=== PATIENT | female | born 1940 | race Caucasian/White ===

== ENCOUNTER 2021-09-07 22:14 | Inpatient (IN) | payer OTHER ==
[2021-09-08 00:24] LABS: VENOUS O2 SATURATION 88.3 % (70-80); VENOUS PCO2 35.4 mmHg (38-52); VENOUS PH 7.486 (7.310-7.410)
[2021-09-08 00:25] LABS: HEMATOCRIT 38.9 % (32.4-45.2); HEMOGLOBIN 13.5 GM/dL (10.7-15.3); MCH 34.1 pg (25.7-33.7); MCHC 34.6 g/dl (32.0-36.0); MEAN CELL VOLUME 98.6 fl (80-96); MEAN PLT VOLUME 7.1 fl (7.5-11.1); PLATELET COUNT 168 10^3/uL (134-434); RBC 3.95 M/mm3 (3.60-5.2); RDW 13.1 % (11.6-15.6); WHITE BLOOD COUNT 14.4 K/mm3 (4.0-10.0)
[2021-09-08 00:46] LABS: ALBUMIN 3.4 g/dl (3.4-5.0); BLOOD UREA NITROGEN 11.6 mg/dL (7-18); CALCIUM 8.9 mg/dL (8.5-10.1)
[2021-09-08 00:49] LABS: CREATININE 0.6 mg/dL (0.55-1.3)
[2021-09-08 00:51] LABS: BILIRUBIN,TOTAL 1.4 mg/dL (0.2-1)
[2021-09-08 00:54] LABS: N-TERMINAL BNP 1414.7 pg/ml (5-450)
[2021-09-08] MEDS ORDERED: POTASSIUM CHLORIDE TABS 20 MEQ TABLET.ER (FP) PO ONE ×4 (01:11→16:30)
[2021-09-08] MEDS ORDERED: ACETAMINOPHEN 1000 MG/100 ML BAG IVPB ONE (02:16)
[2021-09-08] MEDS ORDERED: POLYETHYLENE GLYCOL (HEALTHYLAX) 3350 17 GM PACKET PO PRN (02:23)
[2021-09-08 02:24] LABS: MAGNESIUM 1.6 mg/dL (1.8-2.4)
[2021-09-08] MEDS ORDERED: MAGNESIUM SULF 50% (8.12 MEQ/2 ML-1 GM VIAL) IVPB ONE (02:36)
[2021-09-08] MEDS ORDERED: MAGNESIUM SULFATE IN WATER 2 GM/50 ML IVPB IVPB ONE (03:40)
[2021-09-08] MEDS ORDERED: ACETAMINOPHEN INJECTION 100 ML IVPB ONE (06:04)
[2021-09-08 06:37] LABS: CALCIUM 8.8 mg/dL (8.5-10.1)
[2021-09-08 06:38] LABS: BLOOD UREA NITROGEN 8.8 mg/dL (7-18)
[2021-09-08 06:41] LABS: CREATININE 0.5 mg/dL (0.55-1.3)
[2021-09-08] MEDS ORDERED: ALBUTEROL SO4 HFA INHALER IH PRN (07:14)
[2021-09-08] MEDS ORDERED: LISINOPRIL 20 MG TABLET ONE (07:54)
[2021-09-08] MEDS ORDERED: HYDROCHLOROTHIAZIDE 25 MG TABLET (FP) ONE (07:54)
[2021-09-08] MEDS ORDERED: ENOXAPARIN NA (PORCINE) 40 MG/0.4 ML DISP.SYRIN SQ ONE (07:54)
[2021-09-08] MEDS ORDERED: DEXAMETHASONE SOD PHOSPHATE 10 MG/1 ML VIAL ONE (07:54)
[2021-09-08] MEDS ORDERED: ACETAMINOPHEN 325 MG TABLET (FP) PO PRN (08:00)
[2021-09-08] MEDS: DEXAMETHASONE SOD PHOSPHATE 10 MG/1 ML VIAL IVPUSH SCH ×2 (08:11→09:42)
[2021-09-08 09:33] LABS: MAGNESIUM 2.8 mg/dL (1.8-2.4)
[2021-09-08 09:37] LABS: PHOSPHOROUS 2.9 mg/dL (2.5-4.9)
[2021-09-08] MEDS: HYDROCHLOROTHIAZIDE 12.5 MG CAPSULE (FP) PO SCH (09:43)
[2021-09-08] MEDS: LISINOPRIL 20 MG TABLET PO SCH (09:44)
[2021-09-08] MEDS: ENOXAPARIN NA (PORCINE) 40 MG/0.4 ML DISP.SYRIN SQ SCH (09:44)
[2021-09-08 12:42] VITALS: BMI 25.7
[2021-09-08 14:28] LABS: EPI CELLS 3 /uL (0-25.1); HYALINE CASTS 1 /uL (0-3.1); PH,URINE 6.5 (5.0-8.0); URINE APPEARANCE CLEAR; URINE BACTERIA 20 /uL (0-1359); URINE BILIRUBIN NEGATIVE (NEGATIVE); URINE COLOR YELLOW; URINE GLUCOSE (UA) NEGATIVE (NEGATIVE); URINE KETONE 1+ (NEGATIVE); URINE LEUK ESTERASE NEGATIVE (NEGATIVE); URINE NITRITE NEGATIVE (NEGATIVE); URINE PROTEIN 1+ (NEGATIVE); URINE RBC 18 /uL (0-23.9); URINE WBC 3 /uL (0-25.8)
[2021-09-08] MEDS: ATORVASTATIN CA 10 MG TABLET (FP) PO SCH (22:17)
[2021-09-09 08:35] LABS: HEMATOCRIT 38.4 % (32.4-45.2); HEMOGLOBIN 13.1 GM/dL (10.7-15.3); LYMPH % 7.3 % (8-40); MCH 33.7 pg (25.7-33.7); MCHC 34.1 g/dl (32.0-36.0); MEAN CELL VOLUME 98.6 fl (80-96); MEAN PLT VOLUME 7.8 fl (7.5-11.1); MONO % 7.7 % (3.8-10.2); PLATELET COUNT 191 10^3/uL (134-434); RDW 13.2 % (11.6-15.6); WHITE BLOOD COUNT 14.2 K/mm3 (4.0-10.0)
[2021-09-09 08:39] LABS: ACTIVATED PTT 28.6 SECONDS (25.2-36.5); INR 1.1 (0.83-1.09); PROTHROMBIN TIME (PATIENT) 12.7 SEC (9.7-13.0)
[2021-09-09 08:55] LABS: BLOOD UREA NITROGEN 14.5 mg/dL (7-18); CALCIUM 8.9 mg/dL (8.5-10.1); MAGNESIUM 2.2 mg/dL (1.8-2.4)
[2021-09-09 08:58] LABS: CREATININE 0.4 mg/dL (0.55-1.3)
[2021-09-09] MEDS: HYDROCHLOROTHIAZIDE 12.5 MG CAPSULE (FP) PO SCH (10:37)
[2021-09-09] MEDS: LISINOPRIL 20 MG TABLET PO SCH (10:37)
[2021-09-09] MEDS: DEXAMETHASONE SOD PHOSPHATE 10 MG/1 ML VIAL IVPUSH SCH (10:37)
[2021-09-09] MEDS: ENOXAPARIN NA (PORCINE) 40 MG/0.4 ML DISP.SYRIN SQ SCH (10:38)
[2021-09-09] MEDS: ATORVASTATIN CA 10 MG TABLET (FP) PO SCH (22:04)
[2021-09-09] MEDS: MELATONIN 5 MG TABLETS PO PRN (22:04)
[2021-09-10 08:11] LABS: HEMATOCRIT 36.7 % (32.4-45.2); HEMOGLOBIN 12.7 GM/dL (10.7-15.3); MCH 33.9 pg (25.7-33.7); MCHC 34.6 g/dl (32.0-36.0); MEAN CELL VOLUME 97.8 fl (80-96); MEAN PLT VOLUME 7.6 fl (7.5-11.1); PLATELET COUNT 202 10^3/uL (134-434); RBC 3.75 M/mm3 (3.60-5.2); RDW 12.9 % (11.6-15.6); WHITE BLOOD COUNT 11.6 K/mm3 (4.0-10.0)
[2021-09-10 08:14] LABS: BLOOD UREA NITROGEN 13.4 mg/dL (7-18); CALCIUM 8.7 mg/dL (8.5-10.1)
[2021-09-10 08:17] LABS: CREATININE 0.4 mg/dL (0.55-1.3)
[2021-09-10 08:19] LABS: BILIRUBIN,TOTAL 0.7 mg/dL (0.2-1); TOT PROT 5.9 g/dl (6.4-8.2)
[2021-09-10 08:25] LABS: ALBUMIN 2.7 g/dl (3.4-5.0)
[2021-09-10] MEDS: HYDROCHLOROTHIAZIDE 12.5 MG CAPSULE (FP) PO SCH (09:54)
[2021-09-10] MEDS: ENOXAPARIN NA (PORCINE) 40 MG/0.4 ML DISP.SYRIN SQ SCH (09:54)
[2021-09-10] MEDS: DEXAMETHASONE SOD PHOSPHATE 10 MG/1 ML VIAL IVPUSH SCH (09:54)
[2021-09-10] MEDS: LISINOPRIL 20 MG TABLET PO SCH (09:54)
[2021-09-10] MEDS: MELATONIN 5 MG TABLETS PO PRN (22:05)
[2021-09-10] MEDS: ATORVASTATIN CA 10 MG TABLET (FP) PO SCH (22:05)
[2021-09-11 09:22] LABS: HEMATOCRIT 38.8 % (32.4-45.2); HEMOGLOBIN 13.1 GM/dL (10.7-15.3); MCH 33.2 pg (25.7-33.7); MCHC 33.9 g/dl (32.0-36.0); MEAN PLT VOLUME 7.9 fl (7.5-11.1); PLATELET COUNT 230 10^3/uL (134-434); RBC 3.95 M/mm3 (3.60-5.2); WHITE BLOOD COUNT 9.4 K/mm3 (4.0-10.0)
[2021-09-11 09:49] LABS: ALBUMIN 2.7 g/dl (3.4-5.0); CALCIUM 8.8 mg/dL (8.5-10.1)
[2021-09-11 09:50] LABS: BLOOD UREA NITROGEN 13.3 mg/dL (7-18)
[2021-09-11 09:52] LABS: CREATININE 0.4 mg/dL (0.55-1.3)
[2021-09-11 09:53] LABS: BILIRUBIN,TOTAL 0.7 mg/dL (0.2-1); TOT PROT 5.9 g/dl (6.4-8.2)
[2021-09-11] MEDS: DEXAMETHASONE SOD PHOSPHATE 10 MG/1 ML VIAL IVPUSH SCH (10:11)
[2021-09-11] MEDS: ENOXAPARIN NA (PORCINE) 40 MG/0.4 ML DISP.SYRIN SQ SCH (10:12)
[2021-09-11] MEDS: HYDROCHLOROTHIAZIDE 12.5 MG CAPSULE (FP) PO SCH (10:12)
[2021-09-11] MEDS: LISINOPRIL 20 MG TABLET PO SCH (10:12)
[2021-09-11] MEDS: ATORVASTATIN CA 10 MG TABLET (FP) PO SCH (22:20)
[2021-09-12] MEDS: HYDROCHLOROTHIAZIDE 12.5 MG CAPSULE (FP) PO SCH (10:46)
[2021-09-12] MEDS: DEXAMETHASONE SOD PHOSPHATE 10 MG/1 ML VIAL IVPUSH SCH (10:46)
[2021-09-12] MEDS: LISINOPRIL 20 MG TABLET PO SCH (10:46)
[2021-09-12] MEDS: ENOXAPARIN NA (PORCINE) 40 MG/0.4 ML DISP.SYRIN SQ SCH (10:47)
[2021-09-12 16:16] VITALS: BP 134/63; PULSE 90; TEMP 98
== END 2021-09-12 15:31 | disposition home health service (06) | DRG 177 ==
LOC: JER 22:14 → JERBED 09-08 02:39 → J8W 09-08 10:27
PROVIDERS: ADMIT Hospitalist; ATTEND Internal Medicine
DX: U07.1 COVID-19 (principal); J12.82 Pneumonia due to coronavirus disease 2019; E87.1 Hypo-osmolality and hyponatremia; I10 Essential (primary) hypertension; E78.5 Hyperlipidemia, unspecified; E87.6 Hypokalemia; E83.42 Hypomagnesemia; F10.10 Alcohol abuse, uncomplicated; R09.02 Hypoxemia
CPT/HCPCS: 36415; 71045-TC-FY; 71275-TC; 80048; 80053; 81003; 82728; 82803; 83615; 83735; 83880; 84100; 84484; 85025; 85027; 85379; 85610; 85730; 86140; 87086; 93005; 93010; 94761; 97116-GP; 97161-GP; 99285-25; C9803-CS; J1100; U0003; U0005

== ENCOUNTER 2022-08-27 13:24 | Inpatient (IN) | payer OTHER ==
[2022-08-27] MEDS ORDERED: SODIUM CHLORIDE 1,973 ML IV ONE (13:48)
[2022-08-27] MEDS ORDERED: SODIUM CHLORIDE 0.9% 500 ML INFUS.BAG IV ONE ×2 (14:00→15:48)
[2022-08-27] MEDS ORDERED: ACETAMINOPHEN 1000 MG/100 ML BAG IVPB ONE (14:00)
[2022-08-27] MEDS ORDERED: ACETAMINOPHEN INJECTION 100 ML IVPB ONE (14:14)
[2022-08-27 14:45] LABS: VENOUS BASE EXCESS 1.9 mmol/L (-2-2); VENOUS PCO2 33.9 mmHg (38-52); VENOUS PH 7.482 (7.310-7.410)
[2022-08-27 14:46] LABS: BASO % 0.2 % (0-2.0); HEMATOCRIT 41.7 % (32.4-45.2); HEMOGLOBIN 14.6 GM/dL (10.7-15.3); LYMPH % 4.9 % (8-40); MCH 33.3 pg (25.7-33.7); MEAN CELL VOLUME 95.2 fl (80-96); MEAN PLT VOLUME 8.1 fl (7.5-11.1); MONO % 13.1 % (3.8-10.2); NEUT % 81.8 % (42.8-82.8); PLATELET COUNT 224 10^3/uL (134-434); RBC 4.39 M/mm3 (3.60-5.2); RDW 13.6 % (11.6-15.6); WHITE BLOOD COUNT 16.7 K/mm3 (4.0-10.0)
[2022-08-27 14:53] LABS: INR 1.36 (0.83-1.09); PROTHROMBIN TIME (PATIENT) 15.7 SEC (9.7-13.0)
[2022-08-27 14:55] LABS: ACTIVATED PTT 29.7 SECONDS (25.2-36.5)
[2022-08-27] MEDS ORDERED: PIPERACILLIN/TAZOB 4.5 GM 4.5 GM in DEXTROSE 5%-WATER 100 ML IVPB ONE (14:58)
[2022-08-27] MEDS ORDERED: VANCOMYCIN 1 GM in D5W (PRE-DOCKED) 1,000 MG/250 ML (RESTRICTED TO ID ONLY IVPB ONE (14:58)
[2022-08-27 15:08] LABS: CALCIUM 9.4 mg/dL (8.5-10.1)
[2022-08-27 15:09] LABS: ALBUMIN 3.5 g/dl (3.4-5.0); BLOOD UREA NITROGEN 29.1 mg/dL (7-18)
[2022-08-27 15:12] LABS: CREATININE 0.7 mg/dL (0.55-1.3)
[2022-08-27 15:14] LABS: BILIRUBIN,TOTAL 3.1 mg/dL (0.2-1); TOT PROT 6.9 g/dl (6.4-8.2)
[2022-08-27] MEDS ORDERED: PIPERACILLIN/TAZOB 4.5 GM 4.5 GM/100 ML BAG IVPB ONE (15:28)
[2022-08-27] MEDS ORDERED: IBUPROFEN 600 MG TABLET (FP) PO ONE (15:38)
[2022-08-27] MEDS ORDERED: LACTATED RINGERS SOLUTION 1000 ML INFUS.BAG IV ONE (16:10)
[2022-08-27] MEDS ORDERED: ACETAMINOPHEN 325 MG TABLET (FP) PO PRN (16:11)
[2022-08-27] MEDS ORDERED: KETOROLAC TROMETHAMINE 15 MG/ML VIAL IVPUSH PRN (16:11)
[2022-08-27] MEDS: LACTATED RINGERS SOLUTION 1,000 ML IV SCH (16:26)
[2022-08-27 17:05] LABS: EPI CELLS 8 /uL (0-25.1); HYALINE CASTS 1 /uL (0-3.1); PH,URINE 5.5 (5.0-8.0); URINE APPEARANCE CLEAR; URINE BACTERIA 9 /uL (0-1359); URINE BILIRUBIN 1+ (NEGATIVE); URINE COLOR DK YELLOW; URINE GLUCOSE (UA) NEGATIVE (NEGATIVE); URINE KETONE 2+ (NEGATIVE); URINE LEUK ESTERASE NEGATIVE (NEGATIVE); URINE NITRITE NEGATIVE (NEGATIVE); URINE PROTEIN 3+ (NEGATIVE); URINE RBC 27 /uL (0-23.9); URINE WBC 51 /uL (0-25.8)
[2022-08-27] MEDS ORDERED: ATORVASTATIN CA 20 MG TABLET (FP) PO SCH (22:00)
[2022-08-27] MEDS ORDERED: ATORVASTATIN CA 20 MG TABLET (FP) ONE (22:54)
[2022-08-27] MEDS ORDERED: VANCOMYCIN/WATER FOR INJ (PEG) 1,000 MG/200 ML BAG IVPB SCH (23:00)
[2022-08-28] MEDS ORDERED: ADENOSINE 6 MG/2 ML VIAL IVPUSH ONE ×2 (01:20→01:21)
[2022-08-28] MEDS ORDERED: CEFEPIME 1 GM/100 ML BAG IVPB ONE ×2 (01:35→12:35)
[2022-08-28] MEDS: CEFEPIME 1 GM in DEXTROSE 5%-WATER 100 ML IVPB SCH ×2 (01:45→12:35)
[2022-08-28 02:11] LABS: CALCIUM 8.8 mg/dL (8.5-10.1)
[2022-08-28 02:12] LABS: BLOOD UREA NITROGEN 22.3 mg/dL (7-18)
[2022-08-28 02:15] LABS: CREATININE 0.5 mg/dL (0.55-1.3)
[2022-08-28 02:16] LABS: BILIRUBIN,TOTAL 2.6 mg/dL (0.2-1)
[2022-08-28 02:42] LABS: PHOSPHOROUS 2.1 mg/dL (2.5-4.9)
[2022-08-28] MEDS: KCL 10 MEQ IVPB 10 MEQ/100 ML INFUS.BAG IVPB SCH ×5 (02:55→12:13)
[2022-08-28] MEDS: NAPH,MB-DB/K PH,MBDB POWDER PACKET PO ONE ×2 (02:55→08:12)
[2022-08-28] MEDS ORDERED: KCL 10 MEQ IVPB 10 MEQ/100 ML INFUS.BAG IVPB ONE (05:04)
[2022-08-28 06:34] LABS: INR 1.28 (0.83-1.09); PROTHROMBIN TIME (PATIENT) 14.8 SEC (9.7-13.0)
[2022-08-28 06:42] LABS: ALBUMIN 2.8 g/dl (3.4-5.0); CALCIUM 8.5 mg/dL (8.5-10.1); MAGNESIUM 1.9 mg/dL (1.8-2.4)
[2022-08-28 06:45] LABS: CREATININE 0.4 mg/dL (0.55-1.3)
[2022-08-28 06:47] LABS: BILIRUBIN,TOTAL 2.5 mg/dL (0.2-1); TOT PROT 5.6 g/dl (6.4-8.2)
[2022-08-28 06:50] LABS: N-TERMINAL BNP 2274.3 pg/ml (5-450)
[2022-08-28 06:51] LABS: BASO % 0.3 % (0-2.0); EOS % 0.1 % (0-4.5); HEMOGLOBIN 12.1 GM/dL (10.7-15.3); LYMPH % 8.5 % (8-40); MCH 33.4 pg (25.7-33.7); MCHC 34.7 g/dl (32.0-36.0); MEAN CELL VOLUME 96.4 fl (80-96); MEAN PLT VOLUME 7.6 fl (7.5-11.1); MONO % 11.6 % (3.8-10.2); NEUT % 79.5 % (42.8-82.8); PLATELET COUNT 185 10^3/uL (134-434); RBC 3.63 M/mm3 (3.60-5.2); RDW 13.6 % (11.6-15.6); WHITE BLOOD COUNT 13.4 K/mm3 (4.0-10.0)
[2022-08-28] MEDS ORDERED: VANCOMYCIN/WATER FOR INJ (PEG) 1,000 MG/200 ML BAG IVPB ONE ×2 (08:05→19:37)
[2022-08-28] MEDS ORDERED: NAPH,MB-DB/K PH,MBDB POWDER PACKET ONE (08:05)
[2022-08-28] MEDS ORDERED: KCL 10 MEQ IVPB 20 MEQ/200 ML INFUS.BAG IVPB ONE (08:06)
[2022-08-28] MEDS ORDERED: ENOXAPARIN NA (PORCINE) 30 MG/0.3 ML DISP.SYRIN SQ ONE (08:06)
[2022-08-28] MEDS: VANCOMYCIN/WATER FOR INJ (PEG) 1,000 MG/200 ML BAG IVPB SCH ×2 (08:12→19:37)
[2022-08-28] MEDS ORDERED: VANCOMYCIN 1 GM/200 ML PREMIX BAG (RESTRICTED TO ID ONLY) IVPB SCH (10:00)
[2022-08-28] MEDS ORDERED: VANCOMYCIN 1 GM in D5W (PRE-DOCKED) 1,000 MG/250 ML (RESTRICTED TO ID ONLY IVPB SCH (10:00)
[2022-08-28] MEDS ORDERED: ENOXAPARIN NA (PORCINE) 30 MG/0.3 ML DISP.SYRIN SQ SCH (10:00)
[2022-08-28] MEDS ORDERED: CEFEPIME HCL/D5W 1 GM/50 ML BAG IVPB SCH (10:00)
[2022-08-28] MEDS: SODIUM CHLORIDE 1,000 ML IV SCH ×2 (15:35→16:48)
[2022-08-28] MEDS: CEFTRIAXONE 1 GM in DEXTROSE 5%-WATER - 50 ML IVPB SCH (15:35)
[2022-08-28] MEDS ORDERED: CEFTRIAXONE 1 GM/50 ML BAG ONE (16:13)
[2022-08-28] MEDS: LACTATED RINGERS SOLUTION 1,000 ML IV SCH (16:48)
[2022-08-28] MEDS ORDERED: ACETAMINOPHEN 325 MG TABLET (FP) PO PRN (20:44)
[2022-08-28] MEDS ORDERED: KETOROLAC TROMETHAMINE 15 MG/ML VIAL IVPUSH PRN (20:44)
[2022-08-28] MEDS ORDERED: LACTATED RINGERS SOLUTION 1,000 ML IV SCH (20:44)
[2022-08-28] MEDS: ATORVASTATIN CA 10 MG TABLET (FP) PO SCH (23:14)
[2022-08-29 08:58] LABS: BASO % 0.4 % (0-2.0); EOS % 0.5 % (0-4.5); HEMATOCRIT 30.4 % (32.4-45.2); HEMOGLOBIN 10.6 GM/dL (10.7-15.3); LYMPH % 15.3 % (8-40); MCH 33.9 pg (25.7-33.7); MCHC 34.9 g/dl (32.0-36.0); MEAN CELL VOLUME 96.9 fl (80-96); MEAN PLT VOLUME 7.8 fl (7.5-11.1); NEUT % 69.8 % (42.8-82.8); PLATELET COUNT 139 10^3/uL (134-434); RBC 3.14 M/mm3 (3.60-5.2); RDW 13.4 % (11.6-15.6)
[2022-08-29] MEDS ORDERED: PATIENT'S OWN MEDICATION (NON-FORMULARY) (Lisinopril/Hydrochlorothiazide [Lisinopril-Hctz PO SCH (10:00)
[2022-08-29] MEDS ORDERED: HYDROCHLOROTHIAZIDE 12.5 MG CAPSULE (FP) PO SCH (10:00)
[2022-08-29] MEDS ORDERED: ENOXAPARIN NA (PORCINE) 30 MG/0.3 ML DISP.SYRIN SQ SCH (10:00)
[2022-08-29 10:13] LABS: BLOOD UREA NITROGEN 17.1 mg/dL (7-18); MAGNESIUM 1.8 mg/dL (1.8-2.4)
[2022-08-29 10:16] LABS: CREATININE 0.3 mg/dL (0.55-1.3)
[2022-08-29] MEDS: LISINOPRIL 20 MG TABLET PO SCH (10:18)
[2022-08-29] MEDS: CEFTRIAXONE 1 GM in DEXTROSE 5%-WATER - 50 ML IVPB SCH (10:19)
[2022-08-29] MEDS: SODIUM CHLORIDE 1,000 ML IV SCH (14:01)
[2022-08-29] MEDS: ENOXAPARIN NA (PORCINE) 40 MG/0.4 ML DISP.SYRIN SQ SCH (14:02)
[2022-08-29] MEDS ORDERED: LORazepam 1 MG TABLET PO PRN (14:34)
[2022-08-29] MEDS ORDERED: POTASSIUM CHLORIDE TABS 20 MEQ TABLET.ER (FP) PO ONE (14:45)
[2022-08-29] MEDS: THIAMINE HCL 100 MG TABLET (FP) PO SCH (16:04)
[2022-08-29 19:52] LABS: URINE BARBITURATES NEGATIVE (NEGATIVE)
[2022-08-29 19:53] LABS: COCAINE, UR NEGATIVE (NEGATIVE); METHADONE, UR NEGATIVE (NEGATIVE); URINE AMPHETAMINES NEGATIVE (NEGATIVE); URINE BENZODIAZEPINES NEGATIVE (NEGATIVE)
[2022-08-29 20:06] LABS: OPIATES, URI NEGATIVE (NEGATIVE); PHENCYCLIDINE,URINE NEGATIVE (NEGATIVE)
[2022-08-29] MEDS: ATORVASTATIN CA 10 MG TABLET (FP) PO SCH (21:13)
[2022-08-30] MEDS: SODIUM CHLORIDE 1,000 ML IV SCH (06:36)
[2022-08-30 08:56] LABS: BASO % 0.3 % (0-2.0); EOS % 1.5 % (0-4.5); HEMATOCRIT 33.9 % (32.4-45.2); HEMOGLOBIN 11.6 GM/dL (10.7-15.3); MCH 33.2 pg (25.7-33.7); MEAN CELL VOLUME 97.6 fl (80-96); MEAN PLT VOLUME 7.6 fl (7.5-11.1); MONO % 16.9 % (3.8-10.2); NEUT % 66.3 % (42.8-82.8); PLATELET COUNT 144 10^3/uL (134-434); RBC 3.48 M/mm3 (3.60-5.2); RDW 13.8 % (11.6-15.6); WHITE BLOOD COUNT 6.9 K/mm3 (4.0-10.0)
[2022-08-30 09:27] LABS: BLOOD UREA NITROGEN 10.6 mg/dL (7-18); CALCIUM 7.9 mg/dL (8.5-10.1); MAGNESIUM 1.8 mg/dL (1.8-2.4)
[2022-08-30 09:28] LABS: ALBUMIN 2.3 g/dl (3.4-5.0)
[2022-08-30 09:30] LABS: CREATININE 0.3 mg/dL (0.55-1.3); PHOSPHOROUS 1.8 mg/dL (2.5-4.9)
[2022-08-30] MEDS: THIAMINE HCL 100 MG TABLET (FP) PO SCH (09:31)
[2022-08-30] MEDS: CEFTRIAXONE 1 GM in DEXTROSE 5%-WATER - 50 ML IVPB SCH (09:31)
[2022-08-30 09:32] LABS: BILIRUBIN,TOTAL 1.1 mg/dL (0.2-1); TOT PROT 4.8 g/dl (6.4-8.2)
[2022-08-30] MEDS: LISINOPRIL 20 MG TABLET PO SCH (09:32)
[2022-08-30] MEDS: ENOXAPARIN NA (PORCINE) 40 MG/0.4 ML DISP.SYRIN SQ SCH (09:32)
[2022-08-30] MEDS ORDERED: CYANOCOBALAMIN (VITAMIN B-12) 100 MCG TABLET PO SCH (15:45)
[2022-08-30] MEDS: ATORVASTATIN CA 10 MG TABLET (FP) PO SCH (21:11)
[2022-08-31] MEDS: HYDROCHLOROTHIAZIDE 12.5 MG CAPSULE (FP) PO SCH (09:42)
[2022-08-31] MEDS: ENOXAPARIN NA (PORCINE) 40 MG/0.4 ML DISP.SYRIN SQ SCH (09:42)
[2022-08-31] MEDS: FOLIC ACID 1 MG TABLET (FP) PO SCH (09:42)
[2022-08-31] MEDS: THIAMINE HCL 100 MG TABLET (FP) PO SCH (09:43)
[2022-08-31] MEDS: LISINOPRIL 20 MG TABLET PO SCH (09:43)
[2022-08-31] MEDS: CYANOCOBALAMIN (VITAMIN B-12) 100 MCG TABLET PO SCH (09:43)
[2022-08-31 11:57] LABS: BASO % 0.3 % (0-2.0); EOS % 0.9 % (0-4.5); HEMATOCRIT 36.6 % (32.4-45.2); HEMOGLOBIN 12.4 GM/dL (10.7-15.3); LYMPH % 11.1 % (8-40); MCHC 33.9 g/dl (32.0-36.0); MEAN CELL VOLUME 97.3 fl (80-96); MEAN PLT VOLUME 7.5 fl (7.5-11.1); MONO % 16.1 % (3.8-10.2); NEUT % 71.6 % (42.8-82.8); PLATELET COUNT 174 10^3/uL (134-434); RBC 3.77 M/mm3 (3.60-5.2); RDW 13.7 % (11.6-15.6); WHITE BLOOD COUNT 9.9 K/mm3 (4.0-10.0)
[2022-08-31 12:23] LABS: CALCIUM 8.4 mg/dL (8.5-10.1)
[2022-08-31 12:24] LABS: ALBUMIN 2.6 g/dl (3.4-5.0); BLOOD UREA NITROGEN 5.8 mg/dL (7-18); MAGNESIUM 1.7 mg/dL (1.8-2.4)
[2022-08-31 12:26] LABS: PHOSPHOROUS 2.2 mg/dL (2.5-4.9)
[2022-08-31 12:28] LABS: CREATININE 0.4 mg/dL (0.55-1.3)
[2022-08-31 12:29] LABS: BILIRUBIN,TOTAL 0.9 mg/dL (0.2-1); TOT PROT 5.5 g/dl (6.4-8.2)
[2022-08-31] MEDS: LIDOCAINE 5% TOPICAL PATCH TP SCH (14:13)
[2022-08-31] MEDS: NYSTATIN 100000 UNIT/GM TOPICAL OINTMENT 15 GM TUBE TP SCH ×2 (14:20→22:21)
[2022-08-31] MEDS: SODIUM CHLORIDE 1,000 ML IV SCH (14:21)
[2022-08-31] MEDS: ATORVASTATIN CA 10 MG TABLET (FP) PO SCH (22:20)
[2022-08-31] MEDS: LIDOCAINE PATCH REMOVAL MC SCH (22:22)
[2022-09-01 08:55] LABS: BASO % 0.2 % (0-2.0); EOS % 1.2 % (0-4.5); HEMATOCRIT 33.7 % (32.4-45.2); HEMOGLOBIN 11.6 GM/dL (10.7-15.3); LYMPH % 7.2 % (8-40); MCH 33.1 pg (25.7-33.7); MCHC 34.3 g/dl (32.0-36.0); MEAN CELL VOLUME 96.6 fl (80-96); MEAN PLT VOLUME 7.6 fl (7.5-11.1); MONO % 13.2 % (3.8-10.2); NEUT % 78.2 % (42.8-82.8); PLATELET COUNT 175 10^3/uL (134-434); RBC 3.49 M/mm3 (3.60-5.2); RDW 13.4 % (11.6-15.6); WHITE BLOOD COUNT 14.3 K/mm3 (4.0-10.0)
[2022-09-01 09:26] LABS: ALBUMIN 2.5 g/dl (3.4-5.0); BLOOD UREA NITROGEN 6.7 mg/dL (7-18); CALCIUM 8.6 mg/dL (8.5-10.1); MAGNESIUM 1.8 mg/dL (1.8-2.4)
[2022-09-01 09:29] LABS: CREATININE 0.4 mg/dL (0.55-1.3); PHOSPHOROUS 2.4 mg/dL (2.5-4.9)
[2022-09-01 09:30] LABS: BILIRUBIN,TOTAL 1.3 mg/dL (0.2-1)
[2022-09-01 09:32] LABS: TOT PROT 5.4 g/dl (6.4-8.2)
[2022-09-01] MEDS: THIAMINE HCL 100 MG TABLET (FP) PO SCH (09:54)
[2022-09-01] MEDS: CYANOCOBALAMIN (VITAMIN B-12) 100 MCG TABLET PO SCH (09:54)
[2022-09-01] MEDS: ENOXAPARIN NA (PORCINE) 40 MG/0.4 ML DISP.SYRIN SQ SCH (09:55)
[2022-09-01] MEDS: FOLIC ACID 1 MG TABLET (FP) PO SCH (09:55)
[2022-09-01] MEDS: LIDOCAINE 5% TOPICAL PATCH TP SCH (09:55)
[2022-09-01] MEDS: HYDROCHLOROTHIAZIDE 12.5 MG CAPSULE (FP) PO SCH (09:56)
[2022-09-01] MEDS: LISINOPRIL 20 MG TABLET PO SCH (09:56)
[2022-09-01] MEDS: NYSTATIN 100000 UNIT/GM TOPICAL OINTMENT 15 GM TUBE TP SCH ×2 (10:22→22:10)
[2022-09-01] MEDS ORDERED: NAPH,MB-DB/K PH,MBDB POWDER PACKET PO ONE (12:30)
[2022-09-01] MEDS ORDERED: POTASSIUM CHLORIDE TABS 10 MEQ TABLET.ER (FP) PO ONE (12:30)
[2022-09-01 15:05] VITALS: BMI 25.4
[2022-09-01] MEDS: AMINO ACIDS/PROTEIN HYDROLYS 30 ML LIQUID.PKT PO SCH (18:05)
[2022-09-01] MEDS: LIDOCAINE PATCH REMOVAL MC SCH (22:08)
[2022-09-01] MEDS: ATORVASTATIN CA 10 MG TABLET (FP) PO SCH (22:08)
[2022-09-02 08:22] LABS: BASO % 0.1 % (0-2.0); EOS % 0.6 % (0-4.5); HEMATOCRIT 31.4 % (32.4-45.2); LYMPH % 6.4 % (8-40); MCH 33.6 pg (25.7-33.7); MCHC 35.1 g/dl (32.0-36.0); MEAN CELL VOLUME 95.8 fl (80-96); MEAN PLT VOLUME 7.8 fl (7.5-11.1); MONO % 14.9 % (3.8-10.2); PLATELET COUNT 184 10^3/uL (134-434); RBC 3.28 M/mm3 (3.60-5.2); RDW 13.6 % (11.6-15.6); WHITE BLOOD COUNT 19.4 K/mm3 (4.0-10.0)
[2022-09-02 08:40] LABS: CHLORIDE 100 mmol/L (98-107); SODIUM 135 mmol/L (136-145)
[2022-09-02 08:46] LABS: CALCIUM 8.5 mg/dL (8.5-10.1)
[2022-09-02 08:47] LABS: ALBUMIN 2.4 g/dl (3.4-5.0); BLOOD UREA NITROGEN 4.4 mg/dL (7-18); CO2 27 mmol/L (21-32); GLUCOSE,RANDOM 95 mg/dL (74-106); MAGNESIUM 1.7 mg/dL (1.8-2.4)
[2022-09-02] MEDS: AMINO ACIDS/PROTEIN HYDROLYS 30 ML LIQUID.PKT PO SCH ×2 (08:47→16:49)
[2022-09-02 08:50] LABS: PHOSPHOROUS 2.8 mg/dL (2.5-4.9); SGPT/ALT 48 U/L (13-61)
[2022-09-02 08:51] LABS: CREATININE 0.4 mg/dL (0.55-1.3)
[2022-09-02 08:52] LABS: BILIRUBIN,TOTAL 1.2 mg/dL (0.2-1); SGOT/AST 33 U/L (15-37); TOT PROT 5.2 g/dl (6.4-8.2)
[2022-09-02 08:53] LABS: ALK PHOS 59 U/L (45-117)
[2022-09-02 08:54] LABS: ANION GAP 8 MMOL/L (8-16)
[2022-09-02] MEDS: ENOXAPARIN NA (PORCINE) 40 MG/0.4 ML DISP.SYRIN SQ SCH (09:31)
[2022-09-02] MEDS: CYANOCOBALAMIN (VITAMIN B-12) 100 MCG TABLET PO SCH (09:31)
[2022-09-02] MEDS: LIDOCAINE 5% TOPICAL PATCH TP SCH (09:31)
[2022-09-02] MEDS: THIAMINE HCL 100 MG TABLET (FP) PO SCH (09:31)
[2022-09-02] MEDS: KCL 10 MEQ IVPB 10 MEQ/100 ML INFUS.BAG IVPB SCH ×3 (09:31→13:01)
[2022-09-02] MEDS: amLODIPine BESYLATE 5 MG TABLET (FP) PO SCH (09:32)
[2022-09-02] MEDS: LISINOPRIL 20 MG TABLET PO SCH (09:32)
[2022-09-02] MEDS: ASCORBIC ACID 500 MG TABLET (FP) PO SCH (09:32)
[2022-09-02] MEDS: FOLIC ACID 1 MG TABLET (FP) PO SCH (09:32)
[2022-09-02] MEDS: NYSTATIN 100000 UNIT/GM TOPICAL OINTMENT 15 GM TUBE TP SCH ×2 (09:33→21:57)
[2022-09-02] MEDS: ATORVASTATIN CA 10 MG TABLET (FP) PO SCH (21:56)
[2022-09-02] MEDS: LIDOCAINE PATCH REMOVAL MC SCH (21:56)
[2022-09-02] MEDS: VANCOMYCIN 250 MG/5 ML ORAL SOLUTION PO SCH (23:13)
[2022-09-03] MEDS: VANCOMYCIN 250 MG/5 ML ORAL SOLUTION PO SCH ×3 (06:07→17:09)
[2022-09-03] MEDS: THIAMINE HCL 100 MG TABLET (FP) PO SCH (09:59)
[2022-09-03] MEDS: CYANOCOBALAMIN (VITAMIN B-12) 100 MCG TABLET PO SCH (09:59)
[2022-09-03] MEDS: ENOXAPARIN NA (PORCINE) 40 MG/0.4 ML DISP.SYRIN SQ SCH (09:59)
[2022-09-03] MEDS: ASCORBIC ACID 500 MG TABLET (FP) PO SCH (09:59)
[2022-09-03] MEDS: LIDOCAINE 5% TOPICAL PATCH TP SCH (10:00)
[2022-09-03] MEDS: AMINO ACIDS/PROTEIN HYDROLYS 30 ML LIQUID.PKT PO SCH ×2 (10:00→17:09)
[2022-09-03] MEDS: FOLIC ACID 1 MG TABLET (FP) PO SCH (10:00)
[2022-09-03] MEDS: amLODIPine BESYLATE 5 MG TABLET (FP) PO SCH (10:00)
[2022-09-03] MEDS: LISINOPRIL 20 MG TABLET PO SCH (10:00)
[2022-09-03] MEDS: NYSTATIN 100000 UNIT/GM TOPICAL OINTMENT 15 GM TUBE TP SCH ×2 (10:01→22:06)
[2022-09-03 12:03] LABS: BASO % 0.2 % (0-2.0); EOS % 1.4 % (0-4.5); HEMOGLOBIN 10.8 GM/dL (10.7-15.3); LYMPH % 8.6 % (8-40); MCH 33.5 pg (25.7-33.7); MEAN CELL VOLUME 95.6 fl (80-96); MEAN PLT VOLUME 8.1 fl (7.5-11.1); MONO % 16.8 % (3.8-10.2); PLATELET COUNT 213 10^3/uL (134-434); RBC 3.24 M/mm3 (3.60-5.2); RDW 13.8 % (11.6-15.6); WHITE BLOOD COUNT 10.5 K/mm3 (4.0-10.0)
[2022-09-03] MEDS: KCL 10 MEQ IVPB 10 MEQ/100 ML INFUS.BAG IVPB SCH ×3 (12:44→16:03)
[2022-09-03 13:00] LABS: ALBUMIN 2.2 g/dl (3.4-5.0); BILIRUBIN,TOTAL 0.6 mg/dL (0.2-1); CALCIUM 8.1 mg/dL (8.5-10.1); CREATININE 0.4 mg/dL (0.55-1.3); TOT PROT 5.1 g/dl (6.4-8.2)
[2022-09-03] MEDS ORDERED: ACETAMINOPHEN 1000 MG/100 ML BAG IVPB PRN (13:01)
[2022-09-03] MEDS: ATORVASTATIN CA 10 MG TABLET (FP) PO SCH (22:03)
[2022-09-03] MEDS: LIDOCAINE PATCH REMOVAL MC SCH (22:07)
[2022-09-04] MEDS: VANCOMYCIN 250 MG/5 ML ORAL SOLUTION PO SCH ×5 (00:24→23:01)
[2022-09-04] MEDS: ENOXAPARIN NA (PORCINE) 40 MG/0.4 ML DISP.SYRIN SQ SCH (10:32)
[2022-09-04] MEDS: AMINO ACIDS/PROTEIN HYDROLYS 30 ML LIQUID.PKT PO SCH ×2 (10:32→17:46)
[2022-09-04] MEDS: LIDOCAINE 5% TOPICAL PATCH TP SCH (10:32)
[2022-09-04] MEDS: CYANOCOBALAMIN (VITAMIN B-12) 100 MCG TABLET PO SCH (10:33)
[2022-09-04] MEDS: FOLIC ACID 1 MG TABLET (FP) PO SCH (10:33)
[2022-09-04] MEDS: LISINOPRIL 20 MG TABLET PO SCH (10:33)
[2022-09-04] MEDS: THIAMINE HCL 100 MG TABLET (FP) PO SCH (10:33)
[2022-09-04] MEDS: amLODIPine BESYLATE 5 MG TABLET (FP) PO SCH (10:33)
[2022-09-04] MEDS: ASCORBIC ACID 500 MG TABLET (FP) PO SCH (10:33)
[2022-09-04] MEDS: NYSTATIN 100000 UNIT/GM TOPICAL OINTMENT 15 GM TUBE TP SCH ×2 (11:38→21:02)
[2022-09-04 13:23] LABS: ALBUMIN 2.1 g/dl (3.4-5.0); BILIRUBIN,TOTAL 0.6 mg/dL (0.2-1); BLOOD UREA NITROGEN 6.4 mg/dL (7-18); CALCIUM 8.1 mg/dL (8.5-10.1); CREATININE 0.5 mg/dL (0.55-1.3)
[2022-09-04] MEDS: LIDOCAINE PATCH REMOVAL MC SCH (21:01)
[2022-09-04] MEDS: ATORVASTATIN CA 10 MG TABLET (FP) PO SCH (21:01)
[2022-09-05] MEDS: VANCOMYCIN 250 MG/5 ML ORAL SOLUTION PO SCH ×4 (05:00→23:30)
[2022-09-05 07:28] LABS: HEMATOCRIT 31.6 % (32.4-45.2); HEMOGLOBIN 10.8 GM/dL (10.7-15.3); MCH 33.4 pg (25.7-33.7); MCHC 34.1 g/dl (32.0-36.0); MEAN PLT VOLUME 8.1 fl (7.5-11.1); PLATELET COUNT 246 10^3/uL (134-434); RBC 3.23 M/mm3 (3.60-5.2); RDW 14.5 % (11.6-15.6); WHITE BLOOD COUNT 8.3 K/mm3 (4.0-10.0)
[2022-09-05] MEDS: THIAMINE HCL 100 MG TABLET (FP) PO SCH (09:46)
[2022-09-05] MEDS: AMINO ACIDS/PROTEIN HYDROLYS 30 ML LIQUID.PKT PO SCH ×2 (09:46→17:25)
[2022-09-05] MEDS: ASCORBIC ACID 500 MG TABLET (FP) PO SCH (09:46)
[2022-09-05] MEDS: ENOXAPARIN NA (PORCINE) 40 MG/0.4 ML DISP.SYRIN SQ SCH (09:46)
[2022-09-05] MEDS: FOLIC ACID 1 MG TABLET (FP) PO SCH (09:46)
[2022-09-05] MEDS: LISINOPRIL 20 MG TABLET PO SCH (09:46)
[2022-09-05] MEDS: LIDOCAINE 5% TOPICAL PATCH TP SCH (09:46)
[2022-09-05] MEDS: amLODIPine BESYLATE 5 MG TABLET (FP) PO SCH (09:47)
[2022-09-05] MEDS: CYANOCOBALAMIN (VITAMIN B-12) 100 MCG TABLET PO SCH (09:47)
[2022-09-05 09:52] LABS: ANISOCYTOSIS 0; HELMET CELLS 0; HOWELL-JOLLY BODIES 0; MACROCYTOSIS 0; OVALOCYTE 0; ROULEAU 0; SICKELED CELLS 0; TARGET CELLS 0; TEAR DROP CELLS 0; TOXIC GRANULATION 0
[2022-09-05] MEDS: NYSTATIN 100000 UNIT/GM TOPICAL OINTMENT 15 GM TUBE TP SCH ×2 (09:56→23:30)
[2022-09-05 12:34] LABS: URINE APPEARANCE CLEAR; URINE BILIRUBIN NEGATIVE (NEGATIVE); URINE COLOR YELLOW; URINE GLUCOSE (UA) NEGATIVE (NEGATIVE); URINE KETONE NEGATIVE (NEGATIVE); URINE LEUK ESTERASE NEGATIVE (NEGATIVE); URINE NITRITE NEGATIVE (NEGATIVE); URINE PROTEIN NEGATIVE (NEGATIVE)
[2022-09-05] MEDS: ATORVASTATIN CA 10 MG TABLET (FP) PO SCH (23:30)
[2022-09-05] MEDS: LIDOCAINE PATCH REMOVAL MC SCH (23:30)
[2022-09-06] MEDS: VANCOMYCIN 250 MG/5 ML ORAL SOLUTION PO SCH ×4 (06:14→23:12)
[2022-09-06] MEDS: THIAMINE HCL 100 MG TABLET (FP) PO SCH (11:06)
[2022-09-06] MEDS: amLODIPine BESYLATE 5 MG TABLET (FP) PO SCH (11:06)
[2022-09-06] MEDS: FOLIC ACID 1 MG TABLET (FP) PO SCH (11:06)
[2022-09-06] MEDS: AMINO ACIDS/PROTEIN HYDROLYS 30 ML LIQUID.PKT PO SCH ×2 (11:06→18:39)
[2022-09-06] MEDS: ASCORBIC ACID 500 MG TABLET (FP) PO SCH (11:06)
[2022-09-06] MEDS: CYANOCOBALAMIN (VITAMIN B-12) 100 MCG TABLET PO SCH (11:07)
[2022-09-06] MEDS: NYSTATIN 100000 UNIT/GM TOPICAL OINTMENT 15 GM TUBE TP SCH ×2 (11:08→21:06)
[2022-09-06] MEDS: LISINOPRIL 20 MG TABLET PO SCH (11:08)
[2022-09-06] MEDS: LIDOCAINE 5% TOPICAL PATCH TP SCH (11:08)
[2022-09-06] MEDS: LIDOCAINE PATCH REMOVAL MC SCH (21:06)
[2022-09-06] MEDS: ATORVASTATIN CA 10 MG TABLET (FP) PO SCH (21:06)
[2022-09-07] MEDS: VANCOMYCIN 250 MG/5 ML ORAL SOLUTION PO SCH ×3 (05:11→17:30)
[2022-09-07] MEDS: AMINO ACIDS/PROTEIN HYDROLYS 30 ML LIQUID.PKT PO SCH ×2 (08:48→16:38)
[2022-09-07] MEDS: LIDOCAINE 5% TOPICAL PATCH TP SCH (09:40)
[2022-09-07] MEDS: FOLIC ACID 1 MG TABLET (FP) PO SCH (09:40)
[2022-09-07] MEDS: THIAMINE HCL 100 MG TABLET (FP) PO SCH (09:41)
[2022-09-07] MEDS: ASCORBIC ACID 500 MG TABLET (FP) PO SCH (09:41)
[2022-09-07] MEDS: CYANOCOBALAMIN (VITAMIN B-12) 100 MCG TABLET PO SCH (09:41)
[2022-09-07] MEDS: LISINOPRIL 20 MG TABLET PO SCH (09:42)
[2022-09-07] MEDS: amLODIPine BESYLATE 5 MG TABLET (FP) PO SCH (09:42)
[2022-09-07] MEDS: ENOXAPARIN NA (PORCINE) 40 MG/0.4 ML DISP.SYRIN SQ SCH (09:43)
[2022-09-07] MEDS: NYSTATIN 100000 UNIT/GM TOPICAL OINTMENT 15 GM TUBE TP SCH ×2 (09:44→22:26)
[2022-09-07] MEDS: ATORVASTATIN CA 10 MG TABLET (FP) PO SCH (22:26)
[2022-09-07] MEDS: LIDOCAINE PATCH REMOVAL MC SCH (22:26)
[2022-09-08] MEDS: VANCOMYCIN 250 MG/5 ML ORAL SOLUTION PO SCH ×5 (00:05→23:32)
[2022-09-08] MEDS: AMINO ACIDS/PROTEIN HYDROLYS 30 ML LIQUID.PKT PO SCH ×2 (08:54→17:36)
[2022-09-08] MEDS: THIAMINE HCL 100 MG TABLET (FP) PO SCH (10:30)
[2022-09-08] MEDS: ENOXAPARIN NA (PORCINE) 40 MG/0.4 ML DISP.SYRIN SQ SCH (10:30)
[2022-09-08] MEDS: CYANOCOBALAMIN (VITAMIN B-12) 100 MCG TABLET PO SCH (10:31)
[2022-09-08] MEDS: amLODIPine BESYLATE 5 MG TABLET (FP) PO SCH (10:31)
[2022-09-08] MEDS: NYSTATIN 100000 UNIT/GM TOPICAL OINTMENT 15 GM TUBE TP SCH ×2 (10:31→21:56)
[2022-09-08] MEDS: LISINOPRIL 20 MG TABLET PO SCH (10:31)
[2022-09-08] MEDS: FOLIC ACID 1 MG TABLET (FP) PO SCH (10:31)
[2022-09-08] MEDS: ASCORBIC ACID 500 MG TABLET (FP) PO SCH (10:31)
[2022-09-08] MEDS: LIDOCAINE 5% TOPICAL PATCH TP SCH (10:32)
[2022-09-08] MEDS: LIDOCAINE PATCH REMOVAL MC SCH (21:56)
[2022-09-08] MEDS: ATORVASTATIN CA 10 MG TABLET (FP) PO SCH (21:56)
[2022-09-09] MEDS: VANCOMYCIN 250 MG/5 ML ORAL SOLUTION PO SCH ×2 (05:35→11:41)
[2022-09-09] MEDS ORDERED: amLODIPine BESYLATE 10 MG TABLET (FP) PO SCH (07:42)
[2022-09-09] MEDS: AMINO ACIDS/PROTEIN HYDROLYS 30 ML LIQUID.PKT PO SCH (08:14)
[2022-09-09] MEDS: LIDOCAINE 5% TOPICAL PATCH TP SCH (10:42)
[2022-09-09] MEDS: LISINOPRIL 20 MG TABLET PO SCH (10:43)
[2022-09-09] MEDS: ENOXAPARIN NA (PORCINE) 40 MG/0.4 ML DISP.SYRIN SQ SCH (10:43)
[2022-09-09] MEDS: THIAMINE HCL 100 MG TABLET (FP) PO SCH (10:43)
[2022-09-09] MEDS: ASCORBIC ACID 500 MG TABLET (FP) PO SCH (10:43)
[2022-09-09] MEDS: FOLIC ACID 1 MG TABLET (FP) PO SCH (10:43)
[2022-09-09] MEDS: CYANOCOBALAMIN (VITAMIN B-12) 100 MCG TABLET PO SCH (10:43)
[2022-09-09] MEDS: NYSTATIN 100000 UNIT/GM TOPICAL OINTMENT 15 GM TUBE TP SCH (10:44)
[2022-09-09 12:36] VITALS: BP 141/59; PULSE 86; RESP 18; TEMP 98.3
== END 2022-09-09 12:33 | disposition home or self-care (01) | DRG 558 ==
LOC: JER 13:24 → JERBED 16:12 → J7W 08-28 20:43
PROVIDERS: ADMIT Internal Medicine; ATTEND Internal Medicine
DX: M62.82 Rhabdomyolysis (principal); A04.72 Enterocolitis due to Clostridium difficile, not specified as recurrent; E87.0 Hyperosmolality and hypernatremia; N39.0 Urinary tract infection, site not specified; I24.8 Other forms of acute ischemic heart disease; R55 Syncope and collapse; R00.0 Tachycardia, unspecified; D72.829 Elevated white blood cell count, unspecified; I10 Essential (primary) hypertension; E78.5 Hyperlipidemia, unspecified; M17.0 Bilateral primary osteoarthritis of knee; R74.01 Elevation of levels of liver transaminase levels; E86.0 Dehydration; R32 Unspecified urinary incontinence; R79.89 Other specified abnormal findings of blood chemistry; F10.10 Alcohol abuse, uncomplicated; S80.01XA Contusion of right knee, initial encounter; S50.01XA Contusion of right elbow, initial encounter; S70.02XA Contusion of left hip, initial encounter; W06.XXXA Fall from bed, initial encounter; Y92.092 Bedroom in other non-institutional residence as the place of occurrence of the external cause
CPT/HCPCS: 0241U-QW; 36415; 70450-TC; 71250-TC; 72125-TC; 72128-TC; 72131-TC; 72170-TC-FY; 73070-TC-RT-FY; 73562-TC-RT-FY; 74176-TC; 76705-TC; 80048; 80053; 80307; 81003; 82272; 82550; 82553; 82803; 83605; 83735; 83880; 84100; 84484; 85025; 85610; 85730; 86850; 86900; 86901; 87040; 87086; 87324; 87449; 87899; 93005; 93010; 93306-TC; 93970-TC; 97116-GP; 97162-GP; 99285-25; C9803-CS; U0003; U0005